=== PATIENT | female | born 1985 | race Caucasian/White ===

== ENCOUNTER 2022-12-03 09:57 | Emergency (ER) | payer SELFPAY ==
[~2022-12-03] VITALS: Ht 157.5 cm; Wt 60.6 kg
[2022-12-03] MEDS ORDERED: ZOLO100T PO (10:18)
[2022-12-03] MEDS ORDERED: HYDR50TA70 PO (10:18)
[2022-12-03] MEDS ORDERED: ALBU6.7H6 INH (11:43)
[2022-12-03] MEDS ORDERED: CLAR5TAB7 PO (11:43)
[2022-12-03] MEDS ORDERED: ZITHTAB PO (11:43)
[2022-12-03 11:50] VITALS: BP 142/74
== END 2022-12-03 11:59 | disposition home or self-care (01) ==
LOC: M ED 09:57
DX: J06.9 Acute upper respiratory infection, unspecified (principal); J01.90 Acute sinusitis, unspecified; F17.200 Nicotine dependence, unspecified, uncomplicated; Z91.048 Other nonmedicinal substance allergy status

== ENCOUNTER 2022-12-11 11:11 | Emergency (ER) | payer SELFPAY ==
[~2022-12-11] VITALS: Ht 157.5 cm; Wt 60.7 kg
[~2022-12-11 11:11] MED LIST: ALBU6.7H6 INH; CLAR5TAB7 PO; HYDR50TA70 PO; ZITHTAB PO; ZOLO100T PO
[2022-12-11 11:12] VITALS: BP 120/56
[2022-12-11] MEDS ORDERED: HYDR-3713 PO (12:25)
== END 2022-12-11 12:43 | disposition home or self-care (01) ==
LOC: M ED 11:11
DX: M75.101 Unspecified rotator cuff tear or rupture of right shoulder, not specified as traumatic (principal); X58.XXXA Exposure to other specified factors, initial encounter; Y99.0 Civilian activity done for income or pay; F41.9 Anxiety disorder, unspecified; F32.9 Major depressive disorder, single episode, unspecified

== ENCOUNTER 2023-01-04 20:16 | Emergency (ER) | payer BC, SELFPAY ==
[~2023-01-04] VITALS: Ht 157.5 cm; Wt 59.1 kg
[~2023-01-04 20:16] MED LIST changes: +HYDR-3713 PO
[2023-01-04 22:23] VITALS: BP 136/81
[2023-01-04] MEDS ORDERED: KETOROLAC TROMETHAMINE 10 MG TAB PO ONE (22:35)
== END 2023-01-04 22:53 | disposition home or self-care (01) ==
LOC: M ED 20:16
DX: S61.411A Laceration without foreign body of right hand, initial encounter (principal); W22.09XA Striking against other stationary object, initial encounter; Y92.019 Unspecified place in single-family (private) house as the place of occurrence of the external cause; Y93.89 Activity, other specified; Y99.8 Other external cause status; F41.9 Anxiety disorder, unspecified; F32.9 Major depressive disorder, single episode, unspecified; Z79.899 Other long term (current) drug therapy

== ENCOUNTER → 2023-02-06 | Outpatient (CLI) | payer OTHER | LOC: M PLAIMG 13:51 | PROVIDERS: ATTEND Physician Assistant | DX: M25.511 Pain in right shoulder (principal) ==

== ENCOUNTER 2023-04-25 12:07 | Emergency (ER) | payer MEDICAID, OTHER ==
[~2023-04-25] VITALS: Ht 157.5 cm; Wt 56.8 kg
[2023-04-25 12:07] VITALS: BP 118/78; TEMP 97; O2SAT 99
[2023-04-26] MEDS ORDERED: CYCL5TAB PO (17:13)
== END 2023-04-25 15:29 | disposition left against medical advice (07) ==
LOC: M ED 13:13
DX: Z53.21 Procedure and treatment not carried out due to patient leaving prior to being seen by health care provider (principal)

== ENCOUNTER 2023-04-26 14:54 | Emergency (ER) | payer OTHER ==
[~2023-04-26] VITALS: Ht 157.5 cm; Wt 56.8 kg
[2023-04-26] MEDS ORDERED: ACETAMINOPHEN TAB 650MG DOSE (2X325MG) PO ONE (16:10)
[2023-04-26] MEDS ORDERED: CYCLOBENZAPRINE 10MG TABLET PO ONE (17:05)
[2023-04-26] MEDS ORDERED: CYCL5TAB PO (17:13)
[2023-04-26 17:26] VITALS: BP 123/72; TEMP 98.1; O2SAT 96
== END 2023-04-26 17:23 | disposition home or self-care (01) ==
LOC: M ED 14:54 → EDBD 14:54 → M ED 17:23
DX: S09.90XA Unspecified injury of head, initial encounter (principal); R91.1 Solitary pulmonary nodule; S16.1XXA Strain of muscle, fascia and tendon at neck level, initial encounter; V44.5XXA Car driver injured in collision with heavy transport vehicle or bus in traffic accident, initial encounter; F41.9 Anxiety disorder, unspecified; F32.A Depression, unspecified; Z79.899 Other long term (current) drug therapy

== ENCOUNTER 2023-08-16 12:52 | Emergency (ER) | payer BC, OTHER, SELFPAY ==
[~2023-08-16] VITALS: Ht 157.5 cm; Wt 65.9 kg
[~2023-08-16 12:52] MED LIST changes: +CYCL5TAB PO
[2023-08-16 12:54] VITALS: TEMP 98.7
[2023-08-16] MEDS ORDERED: ONDANSETRON 4MG 2ML VIAL IV ONE (16:30)
[2023-08-16 17:22] LABS: BASO # 0.1 10^3/uL (0.0-0.2); BASO % 0.7 % (0.0-1.0); EOS # 0.3 10^3/uL (0.0-0.5); EOS % 2.7 % (0.0-3.0); HEMATOCRIT 40.9 % (36.0-47.0); HEMOGLOBIN 13.9 g/dl (12.0-15.5); LYMPH # 3.9 10^3/uL (1.5-5.0); LYMPH % 42.9 % (24.0-44.0); MEAN CORPUSCULAR HEMOGLOBIN 30.3 pg (27.0-33.0); MEAN CORPUSCULAR VOLUME 89.3 fl (80.0-96.0); MONO # 0.6 10^3/uL (0.0-0.8); MONO % 6.1 % (2.0-8.0); NEUTROPHILS # 4.3 10^3/uL (1.5-8.5); NEUTROPHILS % 47.4 % (36.0-66.0); PLATELET COUNT, AUTOMATED 324 10^3/uL (150-450); RED BLOOD COUNT 4.58 10^6/uL (4.00-5.40); WHITE BLOOD COUNT 9.1 10^3/uL (4.0-10.0)
[2023-08-16] MEDS ORDERED: ISOVUE-370 76% 100ML VIAL As Ordered ONE (17:32)
[2023-08-16 17:33] LABS: ERYTHROCYTE SEDIMENTATION RATE 33 mm/hr (0-20)
[2023-08-16 17:36] LABS: INR 1.02; PROTHROMBIN TIME 13.1 SECONDS (12.5-14.5)
[2023-08-16 17:37] LABS: PARTIAL THROMBOPLASTIN TIME 25.5 SECONDS (24.8-34.2)
[2023-08-16 17:39] LABS: CK-MB VALUE MASS < 1.0 NG/ML (<3.6)
[2023-08-16 17:40] LABS: CPK CREATINE PHOSPHOKINASE 54 U/L (34-145); MB/CK RELATIVE INDEX 1.85 (< OR =4)
[2023-08-16] MEDS ORDERED: PRED20TA PO (19:20)
[2023-08-16 20:24] VITALS: BP 130/80; O2SAT 100
== END 2023-08-16 20:39 | disposition home or self-care (01) ==
LOC: M ED 12:52
DX: H57.12 Ocular pain, left eye (principal); G44.209 Tension-type headache, unspecified, not intractable; I25.2 Old myocardial infarction; F17.200 Nicotine dependence, unspecified, uncomplicated; Z88.6 Allergy status to analgesic agent; Z79.52 Long term (current) use of systemic steroids; Z79.899 Other long term (current) drug therapy
CPT/HCPCS: 70450; 70481; 80047; 82550; 82553; 84484; 85025; 85610; 85652; 85730; 86140; 87040; 87486; 87581; 87633; 87798; 87880; 93005; 96374; 99284; J2405; Q9967

== ENCOUNTER 2024-01-17 15:28 | Emergency (ER) | payer SELFPAY ==
[~2024-01-17] VITALS: Ht 157.5 cm; Wt 65.9 kg
[~2024-01-17 15:28] MED LIST changes: +PRED20TA PO
[2024-01-17] MEDS: LIDOCAINE 5% (LIDODERM) PATCH TD ONE (17:15)
[2024-01-17] MEDS: IBUPROFEN 800 MG TAB PO ONE (17:18)
[2024-01-17] MEDS ORDERED: CYCL-707 PO (18:00)
[2024-01-17] MEDS: CYCLOBENZAPRINE 10MG TABLET PO ONE (18:19)
[2024-01-17 18:24] VITALS: BP 123/79; TEMP 99.2; O2SAT 99
== END 2024-01-17 18:26 | disposition home or self-care (01) ==
LOC: M ED 15:28
DX: M54.2 Cervicalgia (principal); M62.838 Other muscle spasm; F17.200 Nicotine dependence, unspecified, uncomplicated; Z79.899 Other long term (current) drug therapy; Z88.8 Allergy status to other drugs, medicaments and biological substances

== ENCOUNTER 2024-02-24 13:48 | Emergency (ER) | payer BC, MEDICAID, OTHER, SELFPAY ==
[~2024-02-24] VITALS: Ht 160 cm; Wt 61.8 kg
[~2024-02-24 13:48] MED LIST changes: +CYCL-707 PO
[2024-02-24] MEDS ORDERED: AMOX875T2 PO (15:59)
[2024-02-24] MEDS ORDERED: LIDVISCBTL SSP (15:59)
[2024-02-24] MEDS ORDERED: IBUP80TA PO (15:59)
[2024-02-24 16:04] VITALS: BP 150/85; TEMP 98; O2SAT 99
== END 2024-02-24 16:07 | disposition home or self-care (01) ==
LOC: M ED 13:48
DX: K04.7 Periapical abscess without sinus (principal); F17.200 Nicotine dependence, unspecified, uncomplicated; F43.10 Post-traumatic stress disorder, unspecified; F41.9 Anxiety disorder, unspecified; F32.A Depression, unspecified; Z88.8 Allergy status to other drugs, medicaments and biological substances; Z79.2 Long term (current) use of antibiotics; Z79.1 Long term (current) use of non-steroidal anti-inflammatories (NSAID); Z79.899 Other long term (current) drug therapy

== ENCOUNTER 2024-09-19 09:09 | Emergency (ER) | payer MEDICAID, OTHER ==
[~2024-09-19] VITALS: Ht 157.5 cm; Wt 54.2 kg
[~2024-09-19 09:09] MED LIST changes: +AMOX875T2 PO; -CYCL5TAB PO; +CYCL5TAB4 PO; +IBUP80TA PO; +LIDVISCBTL SSP
[2024-09-19 09:22] VITALS: BP 113/56; TEMP 99; O2SAT 100
[2024-09-19 11:52] LABS: BASO # 0.1 10^3/uL (0.0-0.2); BASO % 0.6 % (0.0-1.0); EOS # 0.2 10^3/uL (0.0-0.5); EOS % 2.1 % (0.0-3.0); HEMATOCRIT 43.5 % (36.0-47.0); HEMOGLOBIN 14.7 g/dl (12.0-15.5); LYMPH # 3.7 10^3/uL (1.5-5.0); LYMPH % 41.2 % (24.0-44.0); MEAN CORPUSCULAR HEMOGLOBIN 30.1 pg (27.0-33.0); MEAN CORPUSCULAR HGB CONC 33.8 g/dl (32.0-36.5); MEAN CORPUSCULAR VOLUME 89.1 fl (80.0-96.0); MONO # 0.5 10^3/uL (0.0-0.8); NEUTROPHILS # 4.6 10^3/uL (1.5-8.5); NEUTROPHILS % 50.9 % (36.0-66.0); PLATELET COUNT, AUTOMATED 278 10^3/uL (150-450); RED BLOOD COUNT 4.88 10^6/uL (4.00-5.40); WHITE BLOOD COUNT 9.1 10^3/uL (4.0-10.0)
[2024-09-19 12:21] LABS: ALBUMIN 4.1 G/DL (3.2-5.2); ALKALINE PHOSPHATASE 95 U/L (35-104); ALT/SGPT 13 U/L (7.0-40); AST/SGOT 10 U/L (<34); BILIRUBIN,DIRECT 0.1 MG/DL (<0.4); BILIRUBIN,TOTAL 0.3 MG/DL (0.3-1.2); BLOOD UREA NITROGEN 13 MG/DL (9-23); CALCIUM LEVEL 10.1 MG/DL (8.5-10.1); CARBON DIOXIDE LEVEL 27 MMOL/L (20-31); CHLORIDE LEVEL 104 MMOL/L (98-107); CREATININE FOR GFR 0.58 MG/DL (0.55-1.30); GLOMERULAR FILTRATION RATE > 60.0 (>58); GLUCOSE, FASTING 91 MG/DL (60-100); POTASSIUM SERUM 4.6 MMOL/L (3.5-5.1); SODIUM LEVEL 136 MMOL/L (136-145); TOTAL PROTEIN 7.9 G/DL (5.7-8.2)
[2024-09-19] MEDS: KETOROLAC 60MG 2ML VIAL IM ONE (13:30)
== END 2024-09-19 13:59 | disposition home or self-care (01) ==
LOC: M ED 09:09
DX: R07.89 Other chest pain (principal); M94.0 Chondrocostal junction syndrome [Tietze]; F17.200 Nicotine dependence, unspecified, uncomplicated; Z88.8 Allergy status to other drugs, medicaments and biological substances
CPT/HCPCS: 71046; 80048; 80076; 85025; 87040; 87486; 87581; 87633; 87798; 96372; 99283; J1885

== ENCOUNTER 2025-04-26 13:13 | Emergency (ER) | payer OTHER, SELFPAY ==
[~2025-04-26] VITALS: Ht 157.5 cm; Wt 46.8 kg
[2025-04-26 13:39] LABS: BASO # 0.0 10^3/uL (0.0-0.2); BASO % 0.5 % (0.0-1.0); EOS # 0.1 10^3/uL (0.0-0.5); EOS % 1.5 % (0.0-3.0); LYMPH # 3.2 10^3/uL (1.5-5.0); LYMPH % 40.8 % (24.0-44.0); MONO # 0.5 10^3/uL (0.0-0.8); MONO % 6.2 % (2.0-8.0); NEUTROPHILS # 4.0 10^3/uL (1.5-8.5); NEUTROPHILS % 50.9 % (36.0-66.0); PLATELET COUNT, AUTOMATED 252 10^3/uL (150-450)
[2025-04-26] MEDS ORDERED: NITROGLYCERIN 0.4 MG SUBL TABLET SL PRN (13:40)
[2025-04-26] MEDS ORDERED: ISOVUE-370 76% 100 ML VIAL As Ordered ONE (13:53)
[2025-04-26 14:13] LABS: CK-MB VALUE MASS 1.6 NG/ML (<3.6)
[2025-04-26 14:17] LABS: CALCIUM LEVEL 9.4 MG/DL (8.5-10.1); CARBON DIOXIDE LEVEL 27 MMOL/L (20-31); CHLORIDE LEVEL 106 MMOL/L (98-107); CPK CREATINE PHOSPHOKINASE 69 U/L (34-145); CREATININE FOR GFR 0.58 MG/DL (0.55-1.30); GLOMERULAR FILTRATION RATE > 90.0 (>58); MB/CK RELATIVE INDEX 2.31 (< OR =4); POTASSIUM SERUM 3.7 MMOL/L (3.5-5.1); SODIUM LEVEL 140 MMOL/L (136-145)
[2025-04-26 14:22] LABS: AMPHETAMINES LEVEL URINE NEGATIVE (NEGATIVE); BARBITURATES URINE NEGATIVE (NEGATIVE); BENZODIAZEPINES URINE NEGATIVE (NEGATIVE); CANNABINOIDS URINE NEGATIVE (NEGATIVE); METHADONE URINE NEGATIVE (NEGATIVE); OPIATES URINE NEGATIVE (NEGATIVE); PHENCYCLIDINE URINE NEGATIVE (NEGATIVE)
[2025-04-26 14:23] LABS: COCAINE METABOLITE URINE POSITIVE (NEGATIVE)
[2025-04-26 15:06] LABS: CK-MB VALUE MASS < 1.0 NG/ML (<3.6)
[2025-04-26 15:10] LABS: CPK CREATINE PHOSPHOKINASE 48 U/L (34-145)
[2025-04-26 15:52] VITALS: BP 117/69; TEMP 98.6; O2SAT 100
== END 2025-04-26 16:08 | disposition home or self-care (01) ==
LOC: M ED 13:13 → EDBD 13:13 → M ED 16:08
DX: R07.9 Chest pain, unspecified (principal); M75.32 Calcific tendinitis of left shoulder; F17.200 Nicotine dependence, unspecified, uncomplicated; Z88.8 Allergy status to other drugs, medicaments and biological substances; Z47.89 Encounter for other orthopedic aftercare
CPT/HCPCS: 36415; 70450; 70496; 70498; 71045; 71275; 72128; 73030; 80048; 80307; 82550; 82553; 83880; 84484; 85025; 93005; 93041; 94760; 99285; Q9967